=== PATIENT | female | born 1985 | race Two or more races ===

== ENCOUNTER 2021-09-03 12:31 | Outpatient (REF) | payer OTHER, SELFPAY ==
--- NOTE | ~2021-09-03 | US_ITS ---
EXAMINATION: US SOFT TISSUE NECK CLINICAL INFORMATION: Localized enlarged lymph nodes. COMPARISON: None TECHNIQUE: Ultrasound of the neck soft tissues is performed with high- frequency sullivan-scale imaging and color Doppler. FINDINGS: There are anechoic and hypoechoic structures seen in the right supraclavicular area measuring 0.6 x 0.5 to 0.4 cm with mild anterior vascularity, question cyst versus cystic lymph node. A second anechoic to hypoechoic structure seen in the right supraclavicular area measuring 0.7 x 0.3 x 0.5 cm with slight increased vascularity. Question cyst versus cystic lymph node. There is no solid mass or lymph node seen. US/US soft tiss head and/or neck IMPRESSION: 2 small anechoic to hypoechoic structures measuring subcentimeter partially vascular. Cyst versus cystic lymph nodes.
--- NOTE | 2021-09-03 17:37 | PFT_ITS ---
Forced vital capacity, FEV1, and CMG62-19 were all normal. MVV is also normal. There is no significant response to bronchodilator therapy. Lung volumes: Total lung capacity and residual volume are normal. Diffusion capacity is normal. CONCLUSION: Normal pulmonary function test. No obstructive or restrictive pulmonary disorder and no response to bronchodilator therapy. MD FROY Dugan/ENRIQUETA / [id number]
== END 2021-09-03 12:32 | disposition home or self-care (01) ==
LOC: HO.US 12:31
PROVIDERS: Visit Provider Internal Medicine
DX: R06.02 Shortness of breath (principal); R59.0 Localized enlarged lymph nodes
CPT/HCPCS: 76536; 94060; 94727; 94729

== ENCOUNTER → 2021-09-11 14:01 | Outpatient (BNVA) | payer OTHER, SELFPAY | PROVIDERS: PCP Internal Medicine; Referring Provider Internal Medicine; Visit Provider Surgery ==

== ENCOUNTER 2021-09-24 16:37 | Outpatient (REF) | payer OTHER, SELFPAY ==
[2021-09-24 16:51] LABS: MANUAL DIFF FLAG NO
[2021-09-24 17:17] LABS: Basophils Absolute Auto 0.1 X10*3/uL (0.0-0.2); Basophils Percent Auto 0.8 % (0-2); Eosinophils Absolute Auto 0.4 X10*3/uL (0.0-0.4); Eosinophils Percent Auto 4.1 % (0-4); Imm Gran Abs Auto 0.03 X10*3/uL (0.00-0.03); Imm Gran Pct Auto 0.4 % (0.0-0.4); Lymphocytes Absolute Auto 3.5 X10*3/uL (1.2-4.9); Lymphocytes Percent Auto 40.8 % (20-40); Mean Corpuscular HGB Conc 33.3 g/dl (31.0-35.0); Mean Corpuscular Hemoglobin 29.2 pg (27.0-33.0); Mean Corpuscular Volume 87.7 fL (80.0-98.0); Mean Platelet Volume 10.6 fL (9.4-12.3); Monocytes Absolute Auto 0.7 X10*3/uL (0.1-1.2); Monocytes Percent Auto 8.3 % (2-11); Neutrophils Absolute Auto 3.9 x10*3/uL (2.0-8.3); Neutrophils Percent Auto 45.6 % (45-73); Platelet Count 361 X10*3/uL (160-400); Red Blood Count 4.79 X10*6/uL (4.20-5.50); Red Cell Distribution Width 12.1 % (11.0-16.0); White Blood Count 8.5 X10*3/uL (4.8-10.8)
[2021-09-24 17:34] LABS: Alanine Aminotransferase 28 U/L (0-31); Albumin Level 4.5 g/dL (3.5-5.0); Alkaline Phosphatase 89 U/L (39-117); Anion Gap 12 (12-20); Aspartate Amino Transferase 19 U/L (5-31); Bilirubin Total 0.3 mg/dL (0.0-1.0); Blood Urea Nitrogen 11 mg/dL (9-16); Calcium 9.8 mg/dL (8.4-10.2); Carbon Dioxide 26 mmol/L (22-29); Chloride 105 mmol/L (96-108); Estimated Glomerular Filt Rate > 60; Glucose Random 90 mg/dL (60-115); Potassium 4.1 mmol/L (3.3-5.1); Sodium 139 mmol/L (135-145); Total Protein 8.7 g/dL (6.5-8.0)
[2021-09-24 17:55] LABS: TSH reflex Free T4 2.29 uIU/mL (0.32-4.0)
== END 2021-09-24 16:38 | disposition home or self-care (01) ==
LOC: HO.LAB 16:37
PROVIDERS: PCP Internal Medicine; Visit Provider Nurse Practitioner Family
DX: R22.1 Localized swelling, mass and lump, neck (principal)
CPT/HCPCS: 36415; 80053; 84443; 85025

== ENCOUNTER 2021-10-02 08:20 | Outpatient (REF) | payer OTHER, SELFPAY ==
--- NOTE | ~2021-10-02 | US_ITS ---
EXAMINATION: ULTRASOUND-GUIDED NEEDLE PLACEMENT CLINICAL INFORMATION: Right supraclavicular lymphadenopathy. COMPARISON: Previous soft tissue ultrasound 09/03/2021 TECHNIQUE: Procedure and risks and benefits including bleeding and infection were discussed with the patient and informed consent was obtained. The right supraclavicular region was prepped and draped in the usual sterile fashion. The skin and soft tissues were anesthetized with 1% lidocaine plain. Using ultrasound guidance and a 22-gauge needle, 3 separate 22 FNA specimens were obtained from the largest right supraclavicular lymph node. Specimen was sent for Gram stain and culture, cytology and flow cytometry studies. FINDINGS: There are several small right supraclavicular lymph nodes. The largest lymph node that measured 0.8 x 0.5 x 0.6 cm was targeted for fine-needle aspiration. Lymph nodes are normal in size and demonstrate normal ultrasound morphology and flow. US/US guide needle placement IMPRESSION: Right supraclavicular lymph node fine-needle aspiration.
[2021-10-02] MEDS: Lidocaine HCl 1 % MPF 5 ML VIAL 4 ML SUBCUT (09:41)
== END 2021-10-02 08:21 | disposition home or self-care (01) ==
LOC: HO.US 08:20
PROVIDERS: Radiology Diagnostic Radiology; Visit Provider Surgery
DX: R22.1 Localized swelling, mass and lump, neck (principal)
CPT/HCPCS: 36415; 76942; 87071; 87073; 87205; 88173; 88184; 88185; 88300

== ENCOUNTER → 2021-10-10 08:48 | Outpatient (BNVA) | payer OTHER, SELFPAY | PROVIDERS: PCP Internal Medicine; Referring Provider Internal Medicine; Visit Provider Surgery ==

== ENCOUNTER → 2021-11-19 15:28 | Outpatient (BNVA) | payer OTHER, SELFPAY | PROVIDERS: PCP Internal Medicine; Referring Provider Internal Medicine; Visit Provider Surgery | DX: R59.0 Localized enlarged lymph nodes (principal) | CPT/HCPCS: 99212 ==

== ENCOUNTER 2023-05-15 12:39 | Outpatient (REF) | payer OTHER, SELFPAY ==
[2023-05-21 05:13] LABS: HPV 16 RNA NOT DETECTED (NOT DETECTED); HPV mRNA E6/E7 rflx Detected (Not Detected)
== END 2023-05-15 12:40 | disposition home or self-care (01) ==
LOC: HO.LNP 12:39
PROVIDERS: PCP Internal Medicine; Visit Provider Advanced Practice Midwife
DX: Z01.419 Encounter for gynecological examination (general) (routine) without abnormal findings (principal); Z97.5 Presence of (intrauterine) contraceptive device; Z84.89 Family history of other specified conditions
CPT/HCPCS: 87624; 87625; 88142

== ENCOUNTER 2023-05-15 12:39 | Outpatient (AMB) | payer OTHER, SELFPAY ==
[2023-05-15 12:56] VITALS: BP 120/82; BMI 31.9
--- NOTE | 2023-05-15 12:56 | MHC.OFFVIS ---
Intake Vital Signs 05/15/23 12:56 Height 5 ft 3 in Weight 180 lb BMI 31.9 BP 120/82 Intake Visit Reasons: New patient Annual Intake Note: no concerns Credit Administration Manager Required: No Information Interpreted: non-clinical & clinical Certified Income Tax Preparer: Certified Income Tax Preparer Present Accompanied by: Self / Same As Patient Allergies No Known Drug Allergies Allergy (Unknown, Verified 05/15/23 12:57) U Medication List - Last Reconciled 05/15/23 by Lyn Munoz CNM levonorgestrel (Mirena) intrauterine Is last menstrual period known: No (mirena) HPI New patient Annual HPI Details 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 She has a Mirena that got replaced maybe 3 or 4 years ago by Taylor Nye. She thinks her last Pap smear was in 2011. She had a baby by in 2012 who is now 10 years old.. She also raises a stepchild who is 10 years old. She lives in [place] and has to go meet their bus in an hour and a half. She is and has 0 concerns about STIs and declines testing. She can not really feel a Mirena string but she is not at all worried about it having come out. She knows that it can lead to be left in longer these days then originally. She does not get it bleeding or anything with it sometimes a little spotting at the most and her breasts get a little tender once in a blue so she can feel like she is still cycling on a low level. [facility] Medical History Shortness of breath Overweight (BMI 25.0-29.9) Surgical History History of section Family History Father Hx pulmonary embolism Mother Diabetes HTN (hypertension) Maternal Grandmother Colon cancer Paternal Grandmother Breast cancer Social History (Updated 05/15/23 @ 13:00 by Ladan Gutierrez CMA) Household Members: Spouse and Children Housing: House Alcohol intake: current Alcohol intake frequency: holidays/special occasions only Alcohol type: beer, wine and hard liquor Patient Tobacco Use Status: Never used Tobacco e-Cigarette/Vaping Use: Never Used Second Hand Smoke Exposure: Yes service: No Current occupational status: employed 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 Current occupational exposures/hazards: No Sexual orientation: Straight/Heterosexual Gender identity: Female Cognitive needs: No Hearing needs: No Vision needs: Yes (Glasses) Female Reproductive History Menstrual control method: progestin IUCD Total pregnancies: 1 Full term: 1 Number of Living Children: 1 Date of last pap smear: 07/16/12 History of abnormal pap smear: No Physical Exam Vital Signs: Last Vital Signs BP 120/82 05/15/23 12:56 BMI result Body Mass Index 31.9 Const General: healthy appearing, comfortable, no acute distress, well developed and alert Nutritional Appearance: average body habitus Orientation/consciousness: patient oriented x3 Limitations: no limitations HEENT Head: Yes normocephalic Neck Neck: Yes normal visual inspection Chest Chest palpation & inspection: normal inspection of the chest Breast/axilla inspection: normal inspection of the breasts and normal inspection of the axillae Breast/axilla palpation: normal palpation of the breasts and normal palpation of the axillae Resp Effort & Inspection: normal respiratory effort GI Inspection: Yes normal to inspection, No Abdominal wall edema and No distended Palpation (GI): Soft to palpation and nontender Other: Vagina pink and moist cervix pink moist clear no lesions P and no Mirena string either cervix probed with Cytobrush during Pap but unable to tease out Mirena string. Cervix is nontender uterus is small midposition nontender not enlarged to this practitioners assessment adnexa not enlarged nontender good tone with Kegel. General: Yes bladder normal to palpation External Female Exam: normal external appearance and normal appearance of the urethra Speculum Exam - Vagina: normal appearance of the vagina, normal palpation and normal vaginal discharge Speculum Exam - Cervix: normal appearance of the cervix, normal palpation and nontender Bimanual exam- vagina & uterus: normal bimanual exam, normal palpation, uterine size normal, bladder normal to palpation, consistency normal, normal palpation, uterine mobility normal, uterine shape normal, No Cervical tenderness present, non-tender and no cervical motion tenderness Bimanual Exam- Adnexa, other: normal adnexae, no masses, normal and No adnexal tenderness Neuro General: patient oriented x3 Assessment & Plan Assessment & Plan (1) Screening for cervical cancer: Comment: Patient states her last Pap was in 2011. Pap done 05/15/2023. Code(s): Z12.4 - Encounter for screening for malignant neoplasm of cervix (2) Well woman exam with routine gynecological exam: Code(s): Z01.419 - Encounter for gynecological examination (general) (routine) without abnormal findings (3) Breast cancer screening: Code(s): Z12.39 - Encounter for other screening for malignant neoplasm of breast (4) Presence of 52 mg levonorgestrel-releasing intrauterine device (IUD): Code(s): Z97.5 - Presence of (intrauterine) contraceptive device (5) Family history of uterine fibroid: Comment: Patient states it was noted during 1 of her ultrasounds --not causing any difficulty now, no follow-up necessary 05/15/2023. Code(s): Z84.89 - Family history of other specified conditions Plan -----Discussed in this visit the following: healthy balanced diet, regular and consistent exercise, getting recommended health screens, doing the best she can for her particular health concerns, kegel exercises, pap smear screening and followup recommendations, mammography screening and SBE, normal changes in cycles in her life stage--- . Pap smear done since she has gone a long time between Pap smears her next Pap should probably be in about 3 years. Discussed mammograms will started age 39 she had a normal breast exam today. Reviewed the Mirena in some detail. She states it was refer placed around 3-4 years ago. She has never been able to feel the string recently. Since she does not have any concerned that it fell out or that there has been any difficulty with it there is no need to-ultrasound currently to check on its location. If the string is not accessible when it is time for replacement we will deal with it at that time. She remembered during the visit that she had been told during her that she had had a fibroid when she was having of ultrasound. It has never caused her any difficulty in she was just curious about it I discussed that they can sometimes get bigger or smaller and that they are very common but if it is not causing her pain or heaviness or increased bleeding or anything then she does not need to worry about it at this time. Discussed that if she did experience any of these thing she could call and we would follow up on it. Also discussed that Mirena in some detail. Discussed that yes it can be left in longer than 5 years at this time however if she ever started to experience the cyclic changes that occur with menstrual cycles and symptoms of ovulation she should use a backup method for control until she got the Mirena replaced what ever number of years that would be. RTC 1 year Orders: Orders Pap Smear Today Z01.419 - Encounter for gynecological examination (general) (routine) without abnormal findings Coding Level of Care Code New Pt Prev Care 18-39yr([id number] Diagnoses Screening for cervical cancer Z12.4 Well woman exam with routine gynecological exam Z01.419 Breast cancer screening Z12.39 Presence of 52 mg levonorgestrel-releasing intrauterine device (IUD) Z97.5 Family history of uterine fibroid Z84.89
== END 2023-05-15 13:32 | disposition home or self-care (01) ==
PROVIDERS: PCP Internal Medicine; Visit Provider Advanced Practice Midwife
DX: Z12.4 Encounter for screening for malignant neoplasm of cervix (principal); Z01.419 Encounter for gynecological examination (general) (routine) without abnormal findings; Z12.39 Encounter for other screening for malignant neoplasm of breast; Z97.5 Presence of (intrauterine) contraceptive device; Z84.89 Family history of other specified conditions
CPT/HCPCS: 99385

== ENCOUNTER 2024-05-18 09:22 | Outpatient (AMB) | payer OTHER, SELFPAY ==
--- NOTE | 2024-05-18 09:25 | MHC.OFFVIS ---
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 Doing well with no concerns. She tries to eat healthy and stays active with exercise. Current Mirena uses, has regular monthly menses. Mammogram order to follow after her 39th birthday. Currently is sexually active. She denies vaginal itching and irritation. STI screening offered; she accepts, declines blood work. Denies family history of ovarian or colon cancer. Family history of breast cancer. Last pap smear HPV positive, cytology negative 2022. [facility] Medical History Shortness of breath Overweight (BMI 25.0-29.9) Surgical History History of section Family History Father Hx pulmonary embolism Mother Diabetes HTN (hypertension) Maternal Grandmother Colon cancer Paternal Grandmother Breast cancer Social History Household Members: Spouse and Children Housing: House Alcohol intake: current Alcohol intake frequency: holidays/special occasions only Alcohol type: beer, wine and hard liquor Patient Tobacco Use Status: Never used Tobacco e-Cigarette/Vaping Use: Never Used Second Hand Smoke Exposure: Yes service: No Current occupational status: employed 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 Current occupational exposures/hazards: No Sexual orientation: Straight/Heterosexual Gender identity: Female Cognitive needs: No Hearing needs: No Vision needs: Yes (Glasses) Female Reproductive History Menstrual control method: progestin IUCD (Mirena 10/19) Total pregnancies: 1 Full term: 1 Number of Living Children: 1 Date of last pap smear: 05/15/23 (neg pap +hpv) History of abnormal pap smear: Yes Review of Systems Const All systems reviewed & are unremarkable except as noted in HPI and below Reports as per HPI Eyes Reports no additional complaints ENT Reports no additional complaints Card Reports no additional complaints Resp Reports no additional complaints GI Reports as per HPI and Reports no additional complaints Reports as per HPI Musc Reports no additional complaints Skin/Breast Reports as per HPI Neuro Reports no additional complaints Psych Reports no additional complaints Endo Reports no additional complaints Casimiro/Lymph Reports no additional complaints Aller/Immun Reports no additional complaints Physical Exam Vital Signs: Last Vital Signs BP 120/76 05/18/24 09:26 BMI result Body Mass Index 31.4 Const General: cooperative, healthy appearing, no acute distress, well developed and alert Orientation/consciousness: patient oriented x3 HEENT Head: Yes normal to inspection Eyes General: appearance normal, both eyes and all related structures Neck Neck: Yes normal visual inspection Thyroid: Thyroid normal Chest Chest palpation & inspection: normal inspection of the chest and other (no puckering, dimpling, peau de orange, retraction, discharge, masses) Breast/axilla inspection: normal inspection of the breasts Breast/axilla palpation: normal palpation of the breasts Resp Effort & Inspection: normal respiratory effort GI Inspection: Yes normal to inspection Palpation (GI): Soft to palpation Rectal Exam - Female: deferred General: Yes bladder normal to palpation External Female Exam: normal external appearance and normal appearance of the urethra Speculum Exam - Vagina: normal appearance of the vagina, normal palpation and normal vaginal discharge Speculum Exam - Cervix: normal appearance of the cervix, normal palpation and Other cervical findings present (IUD strings not located with Cytobrush) Bimanual exam- vagina & uterus: normal bimanual exam, normal palpation, uterine size normal, bladder normal to palpation, normal palpation and non-tender Bimanual Exam- Adnexa, other: no masses Skin General skin exam: no rashes or lesions noted Rashes: no rashes Neuro General: patient oriented x3 Cognition (Neuro): normal cognition Extrem General: Yes normal to inspection Psych Attitude: cooperative Thought process: Normal thought process present Results AMB Test Urine AMB Test Urine Negative Last Edit by MEHREEN Ford on 05/18/24 09:59 Assessment & Plan Assessment & Plan (1) History of abnormal cervical Pap smear: Code(s): Z87.42 - Personal history of other diseases of the female genital tract (2) Well woman exam with routine gynecological exam: Code(s): Z01.419 - Encounter for gynecological examination (general) (routine) without abnormal findings Category: Medical Plan Discussed: Current recommendations for pap smears per ASCCP guidelines. Breast awareness and periodic breast exams. Missing IUD strings, plan ultrasound to determine positioning and follow up pending results. UPT is negative today. Maintain a healthy lifestyle including a well balanced diet and routine exercise. Patient verbalizes understanding and agrees to the plan of care. She was given opportunity to ask questions and all questions were answered to the best of my ability. RTO in one year for annual imaging administrator examination. This note is constructed using voice recognition software. While every effort has been made to ensure accuracy, pricing supervisor errors may have been included. Orders: Orders US pelvic and transvaginal Today T83.32XA - Displacement of intrauterine contraceptive device, initial encounter AMB HCG Urine Test Today Z32.02 - Encounter for test, result negative MM tomosynthesis screening BI 11/29/24 Z12.31 - Encounter for screening mammogram for malignant neoplasm of breast CT NG by PCR Today Z20.2 - Contact with and (suspected) exposure to infections with a predominantly sexual mode of transmission PAP + HPV E6/E7 rfx 18/45 Today Z01.419 - Encounter for gynecological examination (general) (routine) without abnormal findings Coding Level of Care Code Est Pt Prev Care 18-39y([id number]) Diagnoses History of abnormal cervical Pap smear Z87.42 Well woman exam with routine gynecological exam Z01.419
[2024-05-18 09:26] VITALS: BP 120/76; BMI 31.4
== END 2024-05-18 10:26 | disposition home or self-care (01) ==
PROVIDERS: PCP Internal Medicine; Visit Provider Advanced Practice Midwife
DX: Z01.419 Encounter for gynecological examination (general) (routine) without abnormal findings (principal); Z87.42 Personal history of other diseases of the female genital tract; Z32.02 Encounter for pregnancy test, result negative
CPT/HCPCS: 99395

== ENCOUNTER 2024-05-18 09:22 | Outpatient (REF) | payer OTHER, SELFPAY ==
[2024-05-18 16:53] LABS: CT PCR NOT DETECTED (Not Detect.); NG PCR NOT DETECTED (Not Detect.)
[2024-05-24 11:23] LABS: HPV 16 RNA NOT DETECTED (NOT DETECTED); HPV mRNA E6/E7 Detected (Not Detected)
== END 2024-05-18 09:23 | disposition home or self-care (01) ==
LOC: HO.LNP 09:22
PROVIDERS: PCP Internal Medicine; Visit Provider Advanced Practice Midwife
DX: Z01.419 Encounter for gynecological examination (general) (routine) without abnormal findings (principal); Z20.2 Contact with and (suspected) exposure to infections with a predominantly sexual mode of transmission; Z87.42 Personal history of other diseases of the female genital tract
CPT/HCPCS: 81025; 87491; 87591; 87624; 87625; 88175

== ENCOUNTER 2024-06-07 10:43 | Outpatient (REF) | payer OTHER, SELFPAY ==
--- NOTE | ~2024-06-07 | US_ITS ---
EXAMINATION: US PELVIS CLINICAL INFORMATION: IUD check. COMPARISON: None available. TECHNIQUE: Ultrasound of the pelvis is performed using both transabdominal and transvaginal transducers along with Doppler. Transvaginal imaging is performed due to inadequate visualization transabdominally. FINDINGS: Uterus: The uterus is anteverted and measures 11.2 x 3.4 x 4.6 cm. The double wall endometrial thickness could not be evaluated as an IUD is present in the endometrial canal. The uterus is smooth in contour and has normal myometrial echogenicity. No visible fibroid. Nabothian cysts are present in the cervix. Adnexa: Both ovaries are visualized. There is normal color flow to the adnexa. There is no ovarian torsion. There is no pelvic ascites or fluid collection. Right ovary measures 3.0 x 3.2 x 2.2 cm for a volume of 11.1 mL. Left ovary measures 5.7 x 3.0 x 4.4 cm for a volume of 39 mL which includes a large septated 4.4 x 2.3 x 3.7 cm cyst. US/US pelvic and transvaginal IMPRESSION: 1. IUD is present in the endometrial canal. 2. A 4.4 cm septated left ovarian cyst. Follow-up ultrasound in 6-12 weeks is recommended. Electronically signed by: Benjie Lange MD 08/04/2024 01:06 AM RAMAKRISHNA HERNANDEZ
== END 2024-06-07 10:44 | disposition home or self-care (01) ==
LOC: HO.US 10:43
PROVIDERS: PCP Internal Medicine; Visit Provider Advanced Practice Midwife
DX: T83.32XA Displacement of intrauterine contraceptive device, initial encounter (principal)
CPT/HCPCS: 76830; 76856

== ENCOUNTER 2024-06-22 07:56 | Outpatient (REF) | payer OTHER, SELFPAY | END 2024-06-22 07:57 | disposition home or self-care (01) | LOC: HO.LNP 07:56 | PROVIDERS: PCP Internal Medicine; Visit Provider Obstetrics & Gynecology | DX: N73.8 Other specified female pelvic inflammatory diseases (principal); B97.7 Papillomavirus as the cause of diseases classified elsewhere | CPT/HCPCS: 57454; 81025; 88305 ==

== ENCOUNTER 2024-06-22 07:56 | Outpatient (AMB) | payer OTHER, SELFPAY ==
--- NOTE | 2024-06-22 08:06 | MHC.OFFVIS ---
Vital Signs 06/22/24 08:19 Height 5 ft 3.5 in Weight 178 lb 9.191 oz BMI 31.1 BP 118/70 Intake Visit Reasons: Colposcopy Transplant Case Manager Required: No Information Interpreted: non-clinical & clinical Census Taker: Census Taker Present (Ladan VERDE) Accompanied by: Self / Same As Patient Allergies No Known Drug Allergies Allergy (Unknown, Verified 05/18/24 09:26) U [facility] Comments Details: Presenting for colposcopy. Pap smear was negative/HPV E6 E7 positive Last co testing in 05/23 was negative/HPV E6 E7 positive [facility] Medical History Shortness of breath Overweight (BMI 25.0-29.9) Surgical History History of section Family History Father Hx pulmonary embolism Mother Diabetes HTN (hypertension) Maternal Grandmother Colon cancer Paternal Grandmother Breast cancer Social History Household Members: Spouse and Children Housing: House Alcohol intake: current Alcohol intake frequency: holidays/special occasions only Alcohol type: beer, wine and hard liquor Patient Tobacco Use Status: Never used Tobacco e-Cigarette/Vaping Use: Never Used Second Hand Smoke Exposure: Yes service: No Current occupational status: employed 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 We thoroughly discussed the procedure itself, including its details, alternatives, and all associated risks. This included but not limited to the following complications such as bleeding, infection, and injury to the vagina, bladder, and vessels, as well as the potential need for transfusion with all its associated risks. Subsequently, the patient sign the consent. Pap smear result: LSIL. Urine test in office = Negative Procedure: During the procedure, the following steps were performed: A speculum was inserted, and acetic acid was applied. Colposcopy was conducted, allowing visualization of the transformation zone. Acetowhite lesions were identified at the 7+9+12 o'clock position. Cervical biopsies were obtained from the 7+9+12 o'clock position, followed by an endocervical curettage (ECC). Vaginoscopy of the upper vagina revealed no evidence of aceto-white lesions. Hemostasis was achieved using Monsel solution, and the patient tolerated the procedure well. Post-Procedure Instructions: The patient was advised to promptly contact the office or the after hours answering service or go to the emergency room if experiencing a temperature exceeding 100.4?F, abdominal pain, nausea/vomiting, or bleeding. Additionally, the patient was instructed to abstain from vaginal intercourse and bathtub use. The patient confirmed understanding of these instructions. Discharge Instructions: The patient was instructed to schedule a follow-up appointment in 2 weeks for further evaluation and management. Please note that this note was generated using a voice recognition program, and errors may have occurred during chronic disease epidemiologist. 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 the false positive/negative rate of a Pap smear as a screening test in detecting cervical cancer and the indication for a diagnostic test -colposcopy, biopsy, endocervical curettage. The patient verbalized understanding and agreed with the plan, all questions answered. Colposcopy done, see procedure note Orders: Orders AMB Colposcopy Today B97.7 - Papillomavirus as the cause of diseases classified elsewhere Coding Level of Care Code Procedure Only Diagnoses HPV in female B97.7 CPT Codes Colposcopy - CPT: 12579-Ypekvethm of cervix including upper vagina with biopsy and ECC ([id number])
[2024-06-22 08:19] VITALS: BP 118/70; BMI 31.1
== END 2024-06-22 08:29 | disposition home or self-care (01) ==
PROVIDERS: PCP Internal Medicine; Visit Provider Obstetrics & Gynecology
DX: R87.810 Cervical high risk human papillomavirus (HPV) DNA test positive (principal); Z32.02 Encounter for pregnancy test, result negative
CPT/HCPCS: 57454

== ENCOUNTER 2024-08-12 15:24 | Outpatient (AMB) | payer OTHER, SELFPAY ==
--- NOTE | 2024-08-12 15:25 | MHC.OFFVIS ---
Intake Visit Reasons: TV US follow up Intake Note: cell # [phone] Caseworker Protective Services: Caseworker Protective Services Present Allergies No Known Drug Allergies Allergy (Unknown, Verified 05/18/24 09:26) U Is last menstrual period known: Yes HPI Comments Details: Tele lisbon visit 15:41-15:46. I spent 5 minutes speaking with the patient on the phone plus an additional 5 minutes reviewing the chart and 5 minutes updating the medical record for a total of 15minutes. Patient presents via phone to discuss: Ultrasound follow up to missing IUD strings. [facility] Medical History Shortness of breath Overweight (BMI 25.0-29.9) Surgical History History of section Family History Father Hx pulmonary embolism Mother Diabetes HTN (hypertension) Maternal Grandmother Colon cancer Paternal Grandmother Breast cancer Social History Household Members: Spouse and Children Housing: House Alcohol intake: current Alcohol intake frequency: holidays/special occasions only Alcohol type: beer, wine and hard liquor Patient Tobacco Use Status: Never used Tobacco e-Cigarette/Vaping Use: Never Used Second Hand Smoke Exposure: Yes service: No Current occupational status: employed 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 Current occupational exposures/hazards: No Sexual orientation: Straight/Heterosexual Gender identity: Female Cognitive needs: No Hearing needs: No Vision needs: Yes (Glasses) Review of Systems Const All systems reviewed & are unremarkable except as noted in HPI and below Endo Reports no additional complaints Physical Exam Const General: cooperative, healthy appearing and no acute distress Psych Appearance: well kempt Attitude: cooperative Thought process: Normal thought process present Telehealth Telehealth Telehealth Platform: [email or web address] Location of provider rendering services: practice address Location of patient: other Patient Identification confirmed using: Name, : Yes Telehealth method: video Patient verbally consented to treatment: Yes Patient verbally consented to billing insurance company: Yes Patient informed of any privacy concerns related to visit: Yes Results Reviewed Results Reviewed: [address] [address] Ultrasound Report Signed Patient: Margoth Marsh MR#: [id number] : 1985 Acct:[id number] Age/Sex: 38 / F ADM Date: 06/07/24 Loc: .[place] Attending Dr: Taylor Nye CNM Ordering Physician: Taylor Nye CNM Date of Service: 06/07/24 Procedure(s): US pelvic and transvaginal Accession Number(s): [id number] cc: Taylor Nye CNM; Suha Wise MD~ EXAMINATION: US PELVIS CLINICAL INFORMATION: IUD check. COMPARISON: None available. TECHNIQUE: Ultrasound of the pelvis is performed using both transabdominal and transvaginal transducers along with Doppler. Transvaginal imaging is performed due to inadequate visualization transabdominally. FINDINGS: Uterus: The uterus is anteverted and measures 11.2 x 3.4 x 4.6 cm. The double wall endometrial thickness could not be evaluated as an IUD is present in the endometrial canal. The uterus is smooth in contour and has normal myometrial echogenicity. No visible fibroid. Nabothian cysts are present in the cervix. Adnexa: Both ovaries are visualized. There is normal color flow to the adnexa. There is no ovarian torsion. There is no pelvic ascites or fluid collection. Right ovary measures 3.0 x 3.2 x 2.2 cm for a volume of 11.1 mL. Left ovary measures 5.7 x 3.0 x 4.4 cm for a volume of 39 mL which includes a large septated 4.4 x 2.3 x 3.7 cm cyst. US/US pelvic and transvaginal IMPRESSION: 1. IUD is present in the endometrial canal. 2. A 4.4 cm septated left ovarian cyst. Follow-up ultrasound in 6-12 weeks is recommended. Electronically signed by: Benjie Lange MD 08/04/2024 01:06 AM [facility] Dictated By: Benjie Lange MD Signed By: <Electronically signed by Benjie Lange MD in OV> 08/04/24 0106 DD/ 1106 TD/TT: 06/07/24 1123 Purchasing Expeditor: SS Assessment & Plan Assessment & Plan (1) Encounter to discuss test results: Code(s): Z71.2 - Person consulting for explanation of examination or test findings (2) Ovarian cyst: Code(s): N83.209 - Unspecified ovarian cyst, unspecified side Qualifiers: Laterality: left Qualified Code(s): N83.202 - Unspecified ovarian cyst, left side (3) IUD surveillance: Code(s): Z30.431 - Encounter for routine checking of intrauterine contraceptive device Plan Discussed: Ultrasound findings-IUD in proper position endometrial canal, left ovarian cyst with septations 4.4 cm. Patient denies any significant pelvic pain feels twinges at times. Reviewed pelvic rest and warnings if needed if any significant pain to call the office right away for a sooner evaluation. Plan a follow up ultrasound in the next 3 weeks to check on the cyst, advised most cyst do spontaneously resolve on their own, cyst are common with a progesterone IUD, if cyst is large and painful would be a candidate for surgical intervention. Plan follow up tele visit for test results unless she has any other concerns and needs to come in for an in-person visit. The patient expressed understanding and agreement with the plan of care. All of her questions and concerns were addressed to the best of my ability. This note is constructed using voice recognition software. While every effort has been made to ensure accuracy, gluing pressman errors may have been included. Orders: Orders US pelvic and transvaginal 09/01/24 N83.202 - Unspecified ovarian cyst, left side Coding Level of Care Code Tele Est Pt Level 3 (82917) Diagnoses Encounter to discuss test results Z71.2 Cyst of left ovary N83.202 Laterality: left IUD surveillance Z30.431
== END 2024-08-12 16:07 | disposition home or self-care (01) ==
LOC: HO.HWS 15:24
PROVIDERS: PCP Internal Medicine; Visit Provider Advanced Practice Midwife
DX: Z71.2 Person consulting for explanation of examination or test findings (principal); N83.202 Unspecified ovarian cyst, left side; Z30.431 Encounter for routine checking of intrauterine contraceptive device
CPT/HCPCS: 99213

== ENCOUNTER → 2024-08-12 15:24 | Outpatient (BNVA) | payer OTHER, SELFPAY | PROVIDERS: PCP Internal Medicine; Visit Provider Advanced Practice Midwife ==

== ENCOUNTER 2024-09-01 10:47 | Outpatient (AMB) | payer OTHER, SELFPAY ==
--- NOTE | 2024-09-01 10:47 | MHC.OFFVIS ---
Intake Visit Reasons: Tv Colpo results/DO NOT RS Allergies No Known Drug Allergies Allergy (Unknown, Verified 05/18/24 09:26) U HPI Comments Details: The patient is scheduled tele health visit post colpo for follow-up. The patient is doing well with no complaints. The pathology showed the following: A. Endocervical, curettage: Scant endocervical glandular mucosa; negative for dysplasia. B. Cervix, 7:00, biopsy: Squamous epithelium; negative for dysplasia; no endocervical glandular component present. C. Cervix, 9:00, biopsy: Squamous epithelium; negative for dysplasia; no endocervical glandular component present. D. Cervix, 12:00, biopsy: Squamous mucosa; negative for dysplasia; no endocervical glandular component present. Comment: The patient's previous negative Pap test ([facility] #[id number]) concurs with the current biopsy [facility] Medical History Ovarian cyst, left Shortness of breath Overweight (BMI 25.0-29.9) Surgical History History of section Family History Father Hx pulmonary embolism Mother Diabetes HTN (hypertension) Maternal Grandmother Colon cancer Paternal Grandmother Breast cancer Social History Household Members: Spouse and Children Housing: House Alcohol intake: current Alcohol intake frequency: holidays/special occasions only Alcohol type: beer, wine and hard liquor Patient Tobacco Use Status: Never used Tobacco e-Cigarette/Vaping Use: Never Used Second Hand Smoke Exposure: Yes service: No Current occupational status: employed 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 Current occupational exposures/hazards: No Sexual orientation: Straight/Heterosexual Gender identity: Female Cognitive needs: No Hearing needs: No Vision needs: Yes (Glasses) Review of Systems Const All systems reviewed & are unremarkable except as noted in HPI and below Reports as per HPI and Reports no additional complaints GI Reports no additional complaints Reports no additional complaints Telehealth Telehealth Telehealth Platform: Telephone Location of provider rendering services: practice address Location of patient: address on file Patient Identification confirmed using: Name, : Yes Telehealth method: video Patient verbally consented to treatment: Yes Patient verbally consented to billing insurance company: Yes Patient informed of any privacy concerns related to visit: Yes Assessment & Plan Assessment & Plan (1) 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 Discussed with the patient the sensitivity specificity, positive and negative predictive value in detecting cervical cancer in addition discussed the regression, persistence and progression rates. Recommended co-testing in 12 months, if cytology and or HPV are abnormal will proceed was colposcopy biopsy and endocervical curettage, if lesions gets worse or stays persistent for 2 years will proceed with loop electric excision procedure. Instructions given to the patient to schedule a co test appointment in 1 year. All questions answered the patient verbalized understanding. I spent a total of 20 minutes reviewing the chart, talking to the patient via video and documenting in the medical record. Coding Level of Care Code Tele Est Pt Level 3 (14817) Diagnoses HPV in female B97.7
== END 2024-09-01 11:45 | disposition home or self-care (01) ==
LOC: HO.HWS 10:47
PROVIDERS: PCP Internal Medicine; Visit Provider Obstetrics & Gynecology
DX: R87.810 Cervical high risk human papillomavirus (HPV) DNA test positive (principal)
CPT/HCPCS: 99213

== ENCOUNTER 2024-09-01 13:27 | Outpatient (REF) | payer OTHER, SELFPAY ==
--- NOTE | ~2024-09-01 | US_ITS ---
CLINICAL HISTORY: N83.202 - Unspecified ovarian cyst, left side US pelvis transvaginal Comparison: None Findings: Transvaginal scanning performed. Retroverted uterus is 8.3 cm length. Normal myometrium. There is an intrauterine device within the endometrial canal. Endometrial thickness not well-visualized. Right ovary 4.4 x 3.0 x 3.1 cm. There is a 4.2 x 2.5 x 2.7 cm cyst within the right ovary. There may be a very mild degree of complexity. Left ovary 3.7 x 2.2 x 2.4 cm. Normal color Doppler of both ovaries. No free fluid. IMPRESSION: 4.2 cm right ovarian cyst. Recommend ultrasound follow-up in 6-8 weeks. This document has been electronically signed by: Helga Trtoter MD on 09/06/2024 16:01:14
== END 2024-09-01 13:28 | disposition home or self-care (01) ==
LOC: HO.US 13:27
PROVIDERS: PCP Internal Medicine; Visit Provider Advanced Practice Midwife
DX: N83.202 Unspecified ovarian cyst, left side (principal)
CPT/HCPCS: 76830; 76856

== ENCOUNTER → 2024-09-01 13:31 | Outpatient (BNV) | payer OTHER, SELFPAY | PROVIDERS: PCP Internal Medicine; Visit Provider Radiology Diagnostic Radiology | DX: N83.202 Unspecified ovarian cyst, left side (principal) | CPT/HCPCS: 76830 ==

== ENCOUNTER 2024-12-14 08:15 | Outpatient (AMB) | payer OTHER, SELFPAY ==
--- NOTE | 2024-12-14 08:17 | MHC.PC.OV ---
Vital Signs 12/14/24 08:27 Height 5 ft 3.5 in Weight 185 lb BMI 32.3 BP 120/80 Blood Pressure Location Lt brachial Position Sitting Intake Visit Reasons: PE Intake Note: Patient here for a physical exam Patient Financial Services Specialist Required: No Accompanied by: Self / Same As Patient Allergies No Known Drug Allergies Allergy (Unknown, Verified 12/14/24 08:46) U Medication List - Last Reconciled 12/14/24 by Suha Tinsley MD levonorgestrel (Mirena) intrauterine Tobacco use date assessed: 12/14/24 Dental Screening Dental Screen Date: 12/14/24 Did you have a dental visit in the last 12 months?: Yes Did you have a dental problem in the last 6 months where you did not have access to dental care?: No Was dental information given to patient?: Patient has dentist HPI HPI Comments History of Present Illness Details The patient is a 39-year-old female presenting with the primary purpose of undergoing a physical examination and health maintenance. She has a history of testing HPV positive, resulting in a biopsy conducted in 2023 following a Pap smear in 2022. Her preventive care considerations include family histories of diabetes, hypertension, and pulmonary embolism. She reports possible extended duration since her last Tdap vaccination and desires to update it. There is a noted familial incidence of colon cancer, indicating a need for monitoring and preventive measures. The patient does not smoke and drinks alcohol infrequently. Past blood work was normal but will be updated. - Tdap vaccination due, not administered in over 10 years - Repeat blood work to evaluate cholesterol, glucose, kidneys, liver function - Mammogram recommended and ordered due to missed prior follow-up - Colonoscopy to be conducted based on strong family history of colon cancer - Weight management discussion initiated - Dermatology referral for skin lesion examination [facility] Medical History (Updated 12/14/24 @ 09:04 by Suha Tinsley MD) Ovarian cyst, left Shortness of breath Overweight (BMI 25.0-29.9) Surgical History History of section Family History Father Hx pulmonary embolism Mother Diabetes HTN (hypertension) Maternal Grandmother Colon cancer Paternal Grandmother Breast cancer Social History Household Members: Spouse and Children Housing: House Alcohol intake: current Alcohol intake frequency: holidays/special occasions only Alcohol type: beer, wine and hard liquor Patient Tobacco Use Status: Never used Tobacco e-Cigarette/Vaping Use: Never Used Second Hand Smoke Exposure: Yes service: No Current occupational status: employed 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 1. Little interest or pleasure in doing things: not at all 2. Feeling down, depressed, or hopeless: not at all 3. Trouble falling or staying asleep, or sleeping too much: not at all 4. Feeling tired or having little energy: several days 5. Poor appetite or overeating: not at all 6. Feeling bad about yourself - or that you are a failure or have let yourself or your family down: not at all 7. Trouble concentrating on things, such as reading the newspaper or watching television: not at all 8. Moving or speaking so slowly that other people could have noticed. Or the opposite - being so fidgety or restless that you have been moving around a lot more than usual: not at all 9. Thoughts that you would be better off or of hurting yourself in some way: not at all Total score: 1 Depression Screening Interpretation: Negative Depression Screening Done: Yes 12944 - PHQ-9 Billing: Yes Source: Developed by Drs. Jasper Heaton, Sharla Moreno, Kali Rouse and colleagues, with an educational katheryn from [employer]. Thrive Questionnaire Date Thrive assessed: 12/14/24 I am a: Patient What is your living situation today?: I have a steady place to live Within the past 12 months, did the food you bought not last and you didn't have the money to get more?: Never true Within the past 12 months, did you worry whether your food would run out before you got money to buy more?: Never true Do you have trouble paying for medicines?: No Do you have trouble getting transportation to medical appointments?: No Do you have trouble paying your heating and electricity bill?: No Do you have trouble taking care of your child, family member or friend?: No Do you have trouble with day-to-day activities such as bathing, preparing meals, shopping, managing finances, etc.?: No Are you currently unemployed and looking for a job?: No Are you interested in more education?: No Please select the resources that you would like help with: None Currently or been in a relationship where the following occur: No concerns reported THRIVE Score: 0 AUDIT C Alcohol Use Questionnaire (AUDIT-C) 1. How often do you have a drink containing alcohol?: Monthly or less 2. How many drinks containing alcohol do you have on a typical day when you are drinking?: 1 or 2 3. How often do you have six or more drinks on one occasion?: Never Total Score: 1 Score Reviewed/Action Taken: No CHASE-7 AMB Questionnaire CHASE-7 Date CHASE - 7 assessed: 12/14/24 Feeling nervous, anxious, or on edge: 0 = Not at all Not being able to stop or control worryin = Not at all Worrying too much about different things: 0 = Not at all Trouble relaxin = Not at all Being so restless that it is hard to sit still: 0 = Not at all Becoming easily annoyed or irritable: 0 = Not at all Feeling afraid as if something awful might happen: 0 = Not at all Total CHASE-7 score (0-4 normal; 5-9 mild; 10-14 moderate; 15-21 severe): 0 Source: Developed by Drs. Jasper Heaton, Sharla Moreno, Kali Rouse and colleagues, with an educational katheryn from [employer]. CHASE-7 Assessment Billing CHASE-7 Assessment Tool: CHASE-7 Assessment 92515 Review of Systems Const All systems reviewed & are unremarkable except as noted in HPI and below Card Denies chest pain at rest, Denies chest pain with activity, Denies edema, Denies irregular heart rhythm, Denies claudication, Denies dyspnea, Denies dyspnea on exertion, Denies orthopnea, Denies paroxysmal nocturnal dyspnea and Denies slow heart rate Resp Denies cough, Denies dyspnea and Denies dyspnea on exertion Physical exam (Primary Care) Vital Signs: Last Vital Signs BP 120/80 12/14/24 08:27 BMI result Body Mass Index 32.3 BMI Assessment/Plan discussion: High BMI High, discussed plan: lifestyle, weight reduction, dietary and physical activity Tobacco/Smoking Status: Tobacco use Status Tobacco use date assessed 12/14/24 12/14/24 08:32 Patient Tobacco Use Status Never used Tobacco 12/14/24 08:20 e-Cigarette/Vaping Use Never Used 12/14/24 08:20 PHQ-9: PHQ-9 Score PHQ-9: Total score 1 12/14/24 08:49 Depression Screening Interpretation: Negative Thrive Assessment: Date of Thrive Assessment Date Thrive assessed 12/14/24 12/14/24 08:20 Currently or been in a relationship where the following occur: No concerns reported HENMT Head: Yes normal to inspection, Yes normocephalic and Yes atraumatic Ears: external ears normal Eyes General: appearance normal, both eyes and all related structures Eyelids: Yes eyelids normal Conjunctivae: conjunctivae normal Neck Neck: Yes normal visual inspection and Yes supple Resp Effort & Inspection: normal respiratory effort Auscultation: clear to auscultation bilaterally Cardio Jugular venous distension: no JVD Rate: regular rate Rhythm: regular rhythm Heart sounds: S1 normal heart sound present and S2 normal heart sound present GI Inspection: Yes normal to inspection Palpation (GI): Soft to palpation and nontender Auscultation: normal bowel sounds Skin General skin exam: no rashes or lesions noted Neuro General: no focal motor deficits Extrem General: Yes full ROM Psych Appearance: grossly normal Immunizations Boostrix Tdap 2.5 Lf unit-8 mcg-5 Lf/0.5 mL intramuscular syringe Performing Provider: Suha Tinsley MD [facility] Administered by: MEHREEN Romero on 12/14/24 08:59 Dose Route Admin Location Dispensed Lot Number Expiration Date [facility] Pipeliner 0.5 mL IM Left Deltoid 0.5 mL [id number] 04/26/27 [id number] [employer] VIS Given Date VIS Provided VIS Publication Date 12/14/24 Single Vaccine 24 Eligibility Eligibility Date Funding Source Not [facility] Eligible 12/14/24 Private Coding Level of Care Code Est Pt Level 3 (06375) Est Pt Prev Care 40-64y(95391) Diagnoses Physical exam Z00.00 Skin lesion L98.9 Additional Codes PHQ-9 - 97587 - PHQ-9 Billing: Yes ([id number]) CHASE-7 Assessment Billing - CHASE-7 Assessment Tool: CHASE-7 Assessment 52056 ([id number]) Time Spent (min) 33 Assessment & Plan Assessment & Plan (1) Physical exam: Code(s): Z00.00 - Encounter for general adult medical examination without abnormal findings Category: Medical (2) Skin lesion: Code(s): L98.9 - Disorder of the skin and subcutaneous tissue, unspecified Category: Medical Plan The patient will receive a Tdap vaccine due to the absence of one in over a decade. Comprehensive blood panels are arranged to verify current levels of critical health indicators. Mammogram and colonoscopy screenings have been arranged to address the increased risk related to cancer, following family history. A referral is issued to dermatology concerning facial skin lesions. Guidance on weight management strategies was provided to support healthier living. All routine checks and preventative measures aim to manage and mitigate potential health risks proactively, including her positive HPV status and family medical history concerns. Patient was informed and verbally consented to the use of an ambient scribe for clinic note documentation during this visit. I discussed with the patient the importance of maintaining vaccinations such as Tdap and arranged for her to receive it due to the long interval since her last inoculation. Screening for breast and colon cancer risks through a scheduled mammogram and colonoscopy, respectively, were detailed because of her family history, ensuring she understood the recommendations. I explained the need for re-evaluation through blood work given that her last workup was in 2021. The patient acknowledged understanding the reasons for these health maintenance measures. I advised referring an examination to dermatology for her skin lesion and engaged in a weight management conversation tailored to her situation. All planned interventions align with preserving her health into the immediate future, respecting her history and current needs. Orders: Orders Comprehensive [place]. Panel Fast Today Z00.00 - Encounter for general adult medical examination without abnormal findings MM tomosynthesis screening BI Today Z12.31 - Encounter for screening mammogram for malignant neoplasm of breast Lipid Panel Today Z00.00 - Encounter for general adult medical examination without abnormal findings TDaP Immunization Today Z23 - Encounter for immunization Referrals Open Access Screening Colonoscopy Referral Z12.12 - Encounter for screening for malignant neoplasm of rectum Patient Instructions: - Receive Tdap vaccine today - Complete scheduled blood work as advised - Ensure to attend mammogram and colonoscopy appointments - Follow through with dermatology referral for facial lesion - Consider and engage in lifestyle changes for potential weight management - Monitor for any changes or abnormalities and report promptly - Maintain awareness of family history implications on health and screenings
--- OUTSIDE RECORDS SUMMARY | 2024-12-14 08:26 | XMS_ITS | Clinical Summary ---
Author Organization [facility] Address [address] [place] [address] Care Team Providers Care Chip Frier Name Role Phone Unavailable Primary Care Provider Unavailabl e Source Comments PLEASE NOTE, if this patient is a minor, it may be UNLAWFUL to discuss sensitive information that is contained in these records (such as FAMILY PLANNING, MENTAL HEALTH or SUBSTANCE ABUSE) with the minor patient's parent or other person without the patient's specific authorization.[facility] Immunizations Immunization Administration Dates Next Due Td (adult), 5 Lf tetanus toxoid, preservative fr ee 12/04/2022 Social History Tobacco Use Types Packs/Day Years Used Date Smoking Tobacco: Never Assessed Social Connections Answer Date Recorded Connectedness 0 05/13/2024 Financial Resource Strain Answer Date R ecorded Financial Resource Strain 0 2021 Stress Answer Date Recorded Stress 0 01/13/2022 Physical Activity Answer Date Recorded Physical Activity 0 01/13/2022 Food Insecurity Answer Date Recorded Food 0 05/26/2024 Transportation Needs Answer Date Record ed Transportation 0 01/13/2022 Housing Stability Answer Date Recorded Housing 0 01/13/2022 Safety and Environment Answer Date Augustine rded Safety 0 01/13/2022 Utilities Answer Date Recorded Utilities 0 01/13/2022 Employment Answer Date Recorded Stress 0 05/13/2024 Comments Unknown Sex and Gender Information Value Date Recorded Sex Assigned at Not on file Legal Sex Female 10:05 AM PDT Gender Identity Not on file Sexual Orientation Not on file Plan of Treatment Health Maintenance Due Date Last Done Comments Anxiety Screening 1984 Diabetes Screening 1984 HPV Screening 1984 Hepatitis C Screening 1984 Lipid Screening 1984 Pap + HPV 1984 Tobacco Screening 1984 HIV Screening 11/20/1999 Relationship Safety Screening/Counseling 11/20/1999 Hypertension Screening (#1) 2002 Imm-Hepatitis B (1 of 3 - 19 + 3-dose series) 11/20/2003 Cervical Cancer Screening 2005 Pap Smear 2005 [id number] ( season) 2024 021, 09/28/2020 Imm-Influenza (#1) 2024 06/11/2021, 06/28/2019 Alcohol and Drug Screen 08/31/2024 Depression Annual Screen 08/31/2024 Breast Cancer Screening (Mammogram) 2024 Imm-DTaP/Tdap/Td (3 - Tdap) 12/04/2032 12/04/2022, 0 01/16/2013 Cervical Ablation/Cold-Knife Conization Discontinued Cervical Cryotherapy Discontinued Colposcopy Discontinued Endometrial Biopsy Discontinued Excision/Leep Discontinued HPV Genotyping Discontinued Vaginal Pap Discontinued Vulvoscopy Discontinued Insurance HNE ([facility]) Member Subscriber Plan / Payer (Ef fective 2021-Present) Name:Margoth Marsh Relation to Subscriber:Self Name:Margoth Marsh Payer ID:[id number] Type:Indemnity Address: [address] [place] [address]
--- OUTSIDE RECORDS SUMMARY | 2024-12-14 08:26 | XMS_ITS | Clinical Summary ---
Author Organization [facility] lin Address [address] [facility] [place] [address] Care Team Providers Care Laser Engineer Name Role Phone Pcp, No Primary Care Provider [phone] Immunizations Name Administration Dates Next Due PPD Test 04/08/2023,04/08/2022 Social History Tobacco Use Types Packs/Day Years Used Date Smoking Tobacco: Never Assessed Comments Unknown Sex and Gender Information Value Date Recorded Sex Assigned at Not on file Legal Sex Female 11:36 AM EDT Gender Identity Not on file Sexual Orientation Not on file Plan of Treatment Health Maintenance Due Date Last Done Comments Depression: Screening Annual ly using PHQ-2/9 in Adults 18 yrs or above (or HM Modifier)([facility]) 1984 Hepatitis C Virus Infection in Adolescents and Adults: Screening (or Modifier) ([facility]) 2002 [facility] Screening Reminder: Bianca corona for all adults ([facility]) 2002 Tobacco Smoking Cessation: i n Adults excluding Women: Behavioral and Pharmacotherapy Interventions ([facility]) 2002 Lipid Screening: Once for Wo men aged 20 to 45 yrs ([facility]) 2004 Cervical Cancer Screenin 1-65 yrs of age (or Modifier) 2005 Cervical Cancer Screening: P ap every 3 yrs pts age 21-65 2005 Cervical Cancer: Pap Screeni ng with Modifier timing ([facility]) 2005 Cervical Cancer: hrHPV alone or with cotesting Pap for Pts 30-65yrs screening every 5yrs ([facility]) 2005 DTaP/Tdap/Td Vaccines ([facility]) (1 - Tdap) 12/05/2022 12/04/2022 COVID-19 Vaccine Screening: Initial Series and Booster Status ([facility]) ( - 2024-25 season) 2024 Flu Vaccination: Yearly for ages 18mos through 64 years (or Modifier)([facility]) 03/31/2025 Zoster/Shingles Vaccine Seri es Screening: Adults aged 18+ yrs (or HM Modifiers)([facility]) (1 of 2) 2034 Pneumococcal Vaccination Scr eening: Pts 0-19 & 19-49 yrs of age ([facility]) Aged Out No longer eligible b ased on patient's age to complete this topic Medical Devices Not on file Insurance [facility] Care Teams Laser Engineer Relationship Specialty Start Date End Date Pcp, Latrice PCP - General Family Medicine 04/08/22
[2024-12-14 08:27] VITALS: BP 120/80; BMI 32.3
== END 2024-12-14 08:59 | disposition home or self-care (01) ==
LOC: HO.HMCH 08:15
PROVIDERS: PCP Internal Medicine; Visit Provider Internal Medicine
DX: Z00.00 Encounter for general adult medical examination without abnormal findings (principal); L98.9 Disorder of the skin and subcutaneous tissue, unspecified; Z23 Encounter for immunization

== ENCOUNTER → 2024-12-14 08:15 | Outpatient (BNVA) | payer OTHER, SELFPAY | PROVIDERS: PCP Internal Medicine; Visit Provider Internal Medicine | DX: Z00.00 Encounter for general adult medical examination without abnormal findings (principal); Z23 Encounter for immunization; L98.9 Disorder of the skin and subcutaneous tissue, unspecified | CPT/HCPCS: 90471; 90715; 96127 ==

== ENCOUNTER 2025-02-25 08:51 | Outpatient (REF) | payer OTHER, SELFPAY | END 2025-02-25 08:52 | disposition home or self-care (01) | LOC: HO.MAMMO 08:51 | PROVIDERS: PCP Internal Medicine; Visit Provider Internal Medicine | DX: Z12.31 Encounter for screening mammogram for malignant neoplasm of breast (principal) | CPT/HCPCS: 77063; 77067 ==

== ENCOUNTER → 2025-02-25 09:00 | Outpatient (BNV) | payer OTHER, SELFPAY | PROVIDERS: PCP Internal Medicine; Visit Provider Internal Medicine | DX: Z12.31 Encounter for screening mammogram for malignant neoplasm of breast (principal) | CPT/HCPCS: 77063; 77067 ==